=== PATIENT | male | born 1975 | race Caucasian/White ===

== ENCOUNTER 2016-10-18 10:24 | Observation (INO) | payer MEDICARE, OTHER ==
[~2016-10-18] VITALS: Ht 188 cm; Wt 79.6 kg
[2016-10-18] MEDS ORDERED: LEVO88TA3 PO (10:39)
[2016-10-18] MEDS ORDERED: KEPP1TAB2 PO (10:39)
[2016-10-18] MEDS ORDERED: HYDRPOW14 PO (10:39)
[2016-10-18] MEDS ORDERED: FORT10GE TD (10:39)
[2016-10-18] MEDS ORDERED: LISI10TA4 PO (10:39)
[2016-10-18] MEDS ORDERED: PANT40TA2 PO (10:39)
--- NOTE | 2016-10-18 11:52 | REP ---
Clinical: Left chest pain. Technique: PA and lateral. Comparison: 05/24/2016. Findings: Very subtle small areas of left basilar atelectasis suggested. The mediastinum and cardiac silhouette are within normal limits and stable. The remainder of lung palmer are clear and without further consolidation, effusion, or pneumothorax. The patient is status post bilateral axillary node dissection. Skeletal structures are intact. Impression: Findings suggest very subtle left basilar atelectasis. Signed by Ho Nguyen MD 10/18/2016 11:43 A
[2016-10-18] MEDS ORDERED: NS 1,000 ML IV ONE (12:00)
[2016-10-18 12:34] LABS: INR 1.03
[2016-10-18 12:47] LABS: ALBUMIN 3.3 GM/DL (3.2-5.2); ALBUMIN/GLOBULIN RATIO 0.65 (1.00-1.93); ALKALINE PHOSPHATASE 118 U/L (45-117); ALT/SGPT 18 U/L (12-78); ANION GAP 6 MEQ/L (8-16); AST/SGOT 20 U/L (15-37); BILIRUBIN,DIRECT 0.1 MG/DL (0.0-0.2); BILIRUBIN,TOTAL 0.6 MG/DL (0.2-1.0); BLOOD UREA NITROGEN 8 MG/DL (7-18); CARBON DIOXIDE LEVEL 29 MEQ/L (21-32); CHLORIDE LEVEL 101 MEQ/L (98-107); CREATININE FOR GFR 0.79 MG/DL (0.70-1.30); GLOMERULAR FILTRATION RATE > 60.0 (>60); GLUCOSE, FASTING 90 MG/DL (70-105); POTASSIUM SERUM 3.5 MEQ/L (3.5-5.1); SODIUM LEVEL 136 MEQ/L (136-145); TOTAL PROTEIN 8.4 GM/DL (6.4-8.2)
[2016-10-18 12:51] LABS: BASO % 0.2 % (0.0-1.0); EOS # 0.1 K/mm3 (0.0-0.50); EOS % 1.2 % (0.0-3.0); LARGE UNSTAINED CELL # 0.1 K/mm3 (0.0-0.4); LYMPH # 1.1 K/mm3 (1.5-4.5); LYMPH % 11.7 % (24.0-44.0); MEAN CORPUSCULAR HEMOGLOBIN 37.3 pg (27.0-33.0); MEAN CORPUSCULAR HGB CONC 34.1 g/dl (32.0-36.5); MEAN CORPUSCULAR VOLUME 109.4 fl (80.0-96.0); MONO # 0.6 K/mm3 (0.0-0.8); MONO % 6.4 % (0.0-5.0); NEUTROPHILS # 7.4 K/mm3 (1.8-7.7); NEUTROPHILS % 79.4 % (36.0-66.0); PLATELET COUNT, AUTOMATED 302 k/mm3 (150-450); RED CELL DISTRIBUTION WIDTH 14.2 % (11.5-14.5); WHITE BLOOD COUNT 9.4 K/mm3 (4.0-10.0)
[2016-10-18] MEDS ORDERED: ISOVUE-370 76% 100ML VIAL (Q9967) As Ordered ONE (12:56)
[2016-10-18] MEDS ORDERED: PERCOCET 5MG/325MG TAB PO ONE (13:00)
[2016-10-18 13:37] LABS: ADD MORPHOLOGY? YES
--- NOTE | 2016-10-18 13:38 | REP ---
Clinical: Left-sided chest pain with acute deep venous thrombosis. Technique: Axial contrast enhanced images from the thoracic inlet to the upper abdomen using 100 ml Isovue 370 intravenous contrast material with multiplanar re-formations. Findings: Satisfactory enhancement of the pulmonary vasculature is achieved and there is significant acute pulmonary embolus in the left main pulmonary artery extending primarily into multiple left lower lobe pulmonary arteries and to a lesser extent the left upper lobe and lingular pulmonary arteries. Moderate pulmonary embolus also identified in the distal right main pulmonary artery is also appreciated extending into the right upper, middle and lower lobe pulmonary arteries. Minimal lingular and left lower lobe atelectasis. No pleural effusion. No pneumothorax. Tracheobronchial tree is patent. Heart and pericardium are normal. Surrounding musculoskeletal structures are intact. Impression: Extensive bilateral pulmonary emboli as described above. Minimal left basilar and lingular atelectasis. Signed by Ho Nguyen MD 10/18/2016 01:30 P
[2016-10-18] MEDS ORDERED: ENOXAPARIN 80 MG/0.8 ML SYRINGE (J1650) SC ONE (14:00)
[2016-10-18] MEDS ORDERED: HYDR-3291 PO (14:05)
[2016-10-18] MEDS ORDERED: PENT40TASA PO (14:05)
[2016-10-18] MEDS ORDERED: ONDANSETRON 4MG/2ML VIAL (J2405) IV PRN (15:30)
[2016-10-18] MEDS ORDERED: ACETAMINOPHEN TAB 650MG DOSE (2X325MG) PO PRN (15:30)
--- NOTE | 2016-10-18 16:39 | REP ---
Clinical: Right lower extremity swelling with history of prior DVT. Technique: Jovle scale and color Doppler evaluation using linear high frequency transducer. Findings: Ultrasound examination of the right lower extremity deep venous structures from the common femoral vein to the popliteal vein demonstrates complete occlusive thrombus extending into the calf veins. The patient gives a history of prior Kay filter placement. Impression: Occlusive thrombus throughout the right lower extremity from the common femoral vein to the popliteal vein and proximal calf veins. The patient gives a history of prior deep venous thrombosis and Kay filter placement. Signed by Ho Nguyen MD 10/18/2016 11:42 A
--- NOTE | 2016-10-18 16:47 | HPE ---
DATE OF ADMISSION: 10/18/2016 PRIMARY CARE PROVIDER: Makenna Dimas MD ONCOLOGIST: Ana Laura Aguilar MD CODE STATUS: FULL CODE. CHIEF COMPLAINT: Chest discomfort and nonproductive cough. HISTORY OF PRESENT ILLNESS: Mr. Duarte is a pleasant 41-year-old gentleman that normally sees Makenna Dimas, has a previous history of metastatic melanoma with brain metastases 10 to 15 years ago and it has been in remission, status post treatment. He does have a history of recurrent venothromboembolism with recurrent blood clot in the right lower extremity as well as pulmonary embolism in the past. Has an inferior vena cava (IVC) filter that was placed but has not been on any anticoagulation therapy and has been getting along relatively well with his disease course. He did present today with increasing shortness of breath, pleuritic type chest pain with deep inspiration and cough. He denies fever, chills, rigors, nausea or vomiting. Bowel movements have been regular. He denies any hematochezia and melena. No neurologic symptoms are reported as well. He was worked up through the emergency department and found to have multiple bilateral pulmonary emboli and a right thigh deep venous thrombosis (DVT). Hospitalist was consulted and requested to admit to the patient for further evaluation and anticoagulation therapy. PAST MEDICAL HISTORY: 1. Melanoma with brain metastases, status post remission. 2. 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 3. History of seizure disorder. 4. History of hypothyroidism. 5. Hypertension. 6. Gastroesophageal reflux disease (GERD). 7. Prior history of adrenal insufficiency. PAST SURGICAL HISTORY: As indicated, the patient did have an IVC filter placed several years ago. FAMILY HISTORY: Noncontributory. SOCIAL HISTORY: The patient does have a history of smoking approximately a half a pack or a pack a day. We did encourage smoking cessation. He denies any alcohol use. No recent travel. No sick contacts. ALLERGIES: No known drug allergies, but he does have an allergy to BEE VENOM. HOME MEDICATIONS: Include: - hydrocortisone 10 mg twice a day - Keppra 750 mg two tablets twice a day - Synthroid 88 mcg daily - lisinopril 10 mg daily - pantoprazole 40 mg daily - pentoxifylline 400 mg twice a day REVIEW OF SYSTEMS: CONSTITUTIONAL: The patient denies fever, chills, rigors. No change in appetite. No weight loss. HEENT: Denies headache. Denies lightheadedness, dizziness, blurry vision, double vision or tinnitus. No difficulty with speech or swallow. PULMONARY: Nonproductive cough. Pleuritic chest pain with deep inspiration and cough. CARDIOVASCULAR: He denies paroxysmal nocturnal dyspnea (PND), orthopnea. No substernal chest pain. GI: No nausea, vomiting or diarrhea. Bowel movements are regular. He denies any hematochezia or melena. : No dysuria, frequency or hematuria. MUSCULOSKELETAL: No bone loss, joint pain, swelling or erythema. NEUROLOGICAL: No paresthesia or paralysis. He denies loss of consciousness. He does have a prior history of seizure disorder, likely related to his previous metastatic disease with brain metastases related to his melanoma. HEMATOLOGY: Positive history of recurrent venothromboembolism with PE and DVT. ONCOLOGY: Prior history of melanoma for which he follows with Dr. Agiular and has been in remission for 10 to 15 years with no recurrence. LYMPHATICS: No lumps, bumps or swelling of the neck, axilla or groin. No weight loss. No night sweats. ENDOCRINE: Positive for thyroid, negative for diabetes. PSYCHIATRIC: No history of depression or suicidal ideation. PHYSICAL EXAMINATION: Temperature is 97.6, pulse 78, respiratory rate 16, blood pressure 121/80, SpO2 is 96% on room air. HEENT: Head atraumatic, normocephalic. He does have a prior scar just off the midline on the left of the scalp. Otherwise, eyes are pupils equal, round, reactive to light and accommodation. Throat is clear. Neck supple. LUNGS: Clear to auscultation. HEART: Regular rate and rhythm. ABDOMEN: Soft. EXTREMITIES: No edema. No calf tenderness. LABS AND DIAGNOSTICS: White count is 9.4, hemoglobin 15, platelets are 302,000. Sodium 136, potassium 3.5, chloride 101, bicarbonate 29, anion gap 6, BUN 8, creatinine 0.79. Glucose is 90. Total bilirubin is 0.6. Calcium is 9.0. Direct bilirubin 0.1. AST 20, ALT 18, alkaline phosphatase 118. CK 46, CK-MB 1.0, troponin 0.05, albumin is 3.3. Coags: PT is 13.6, INR is 1.03, PTT is 34.4. Lower extremity ultrasound did demonstrate an occlusive thrombus throughout the right lower extremity from the common femoral vein to the popliteal vein and proximal calf veins. Two view chest x-ray. Subtle findings of left basilar atelectasis and CT angio of the chest. Extensive bilateral pulmonary emboli as described with minimal left basilar and lingular atelectasis noted. 12-lead EKG: Sinus rhythm. No acute ST-T wave abnormalities. IMPRESSION: Mr. Duarte is a pleasant 41-year-old male with a previous history of melanoma with metastatic brain disease. Has been in remission for about 10 to 12 years. Does have a history of tobacco use which we advised smoking cessation. He currently has recurrent venothromboembolism involving right side DVT and extensive bilateral PEs. He will need to be admitted for further observation and to start him on anticoagulation therapy. 1. Acute recurrent venothromboembolism. 2. Tobacco use. Advised smoking cessation. 3. History of melanoma with metastatic brain disease. Currently in remission for 10 to 15 years. PLAN: Admit to PCU for observation per Dr. Joseph Carbajal. I did have an opportunity to speak to Dr. Aguilar regarding this patient and since he has been in remission, she did advise to start him on 10A inhibitor which we will then start him on Eliquis. We will observe him overnight. If he is hemodynamically stable, he can be discharged in the morning. I did place a Patient and Family Services (PFS) consult in case he needs prior authorization for the Eliquis.
--- NOTE | 2016-10-18 18:05 | ECGEPIP ---
Stationary ECG Study [facility] - ED Test Date: 2016-10-18 Pat Name: JENNIFER KATHLEEN Department: Room: - Gender: M Supervisor Mending: : 1975 Requested By: PATY Wade PA-C Order Number: [id number] Reading MD: Julius Fraser Measurements Intervals [place] Rate: 84 P: 75 AL: 155 QRS: 29 QRSD: 84 T: 57 QT: 394 QTc: 468 Interpretive Statements SINUS RHYTHM POSSIBLE LEFT ATRIAL ENLARGEMENT NO PRIORS Electronically Signed On 10-18-2016 18:05:21 EDT by Julius Fraser
[2016-10-18 18:19] VITALS: BP 124/77
[2016-10-18] MEDS: PERCOCET 5MG/325MG TAB PO PRN (19:53)
[2016-10-18 20:00] VITALS: BP 134/87
[2016-10-18] MEDS: APIXABAN 5 MG TAB (ELIQUIS) PO SCH (22:03)
[2016-10-18] MEDS: levETIRAcetam 250MG TABLET (KEPPRA) PO SCH (22:03)
[2016-10-18] MEDS: HYDROCORTISONE 10 MG TAB PO SCH (22:03)
[2016-10-18] MEDS: PENTOXIFYLLINE 400 MG TAB PO SCH (22:04)
[2016-10-19] VITALS: BP 108/70
[2016-10-19] MEDS: PERCOCET 5MG/325MG TAB PO PRN ×4 (00:14→13:25)
[2016-10-19 04:48] VITALS: BP 126/85
[2016-10-19 05:29] LABS: ANION GAP 4 MEQ/L (8-16); BLOOD UREA NITROGEN 8 MG/DL (7-18); CALCIUM LEVEL 8.2 MG/DL (8.5-10.1); CARBON DIOXIDE LEVEL 30 MEQ/L (21-32); CHLORIDE LEVEL 103 MEQ/L (98-107); CREATININE FOR GFR 0.82 MG/DL (0.70-1.30); GLOMERULAR FILTRATION RATE > 60.0 (>60); GLUCOSE, FASTING 105 MG/DL (70-105); MEAN CORPUSCULAR HEMOGLOBIN 37.5 pg (27.0-33.0); MEAN CORPUSCULAR HGB CONC 33.8 g/dl (32.0-36.5); MEAN CORPUSCULAR VOLUME 110.9 fl (80.0-96.0); POTASSIUM SERUM 4.3 MEQ/L (3.5-5.1); RED CELL DISTRIBUTION WIDTH 14.8 % (11.5-14.5); SODIUM LEVEL 137 MEQ/L (136-145); WHITE BLOOD COUNT 6.6 K/mm3 (4.0-10.0)
[2016-10-19] MEDS ORDERED: LEVOTHYROXINE 0.088 MG TAB (88 MCG) PO SCH (06:00)
[2016-10-19 08:00] VITALS: BP 118/73
[2016-10-19] MEDS: levETIRAcetam 250MG TABLET (KEPPRA) PO SCH (08:50)
[2016-10-19] MEDS: PENTOXIFYLLINE 400 MG TAB PO SCH (08:51)
[2016-10-19] MEDS: HYDROCORTISONE 10 MG TAB PO SCH (08:51)
[2016-10-19 08:52] VITALS: BP 118/73
[2016-10-19] MEDS: APIXABAN 5 MG TAB (ELIQUIS) PO SCH (08:52)
[2016-10-19] MEDS ORDERED: PANTOPRAZOLE 40MG TAB (PROTONIX) PO SCH (09:00)
[2016-10-19] MEDS ORDERED: LISINOPRIL 10 MG TAB PO SCH (09:00)
[2016-10-19] MEDS ORDERED: ELIQ5TAB PO (11:42)
[2016-10-19 12:00] VITALS: BP 122/85
[2016-10-19 13:25] VITALS: BP 122/85
[2016-10-19] MEDS ORDERED: NICODIS TD (13:34)
--- NOTE | 2016-10-19 14:06 | IPN ---
DATE: 10/19/2016 The patient is feeling well this morning. He is not complaining of any chest discomfort. He does have concerns about starting anticoagulation therapy. He has had no evidence of bleeding. He does not describe any hematochezia or melena. We did discuss smoking cessation at length and he is noncommittal for what he might use for cessation. He says that he has quit previously for months at a time. PHYSICAL EXAMINATION: Temperature 98.1, pulse 75, respiratory rate 20, blood pressure 122/85, 93% on room air. He is awake, appropriately interactive, seems somewhat anxious but pleasant, easily conversant. HEART: Regular rate and rhythm. Sinus on telemetry. No significant arrhythmia on the monitor. LUNGS: Breathing is symmetrical. Somewhat diminished in the bases. No wheezes, rales or rhonchi. ABDOMEN: Soft, doughy, nontender. Hemoglobin is 13, creatinine 0.82. ASSESSMENT: This is a 41-year-old with a history of previous venous thromboembolism in the setting of ongoing smoking. PLAN: 1. Hematology/oncology. The patient has been started on Eliquis after Dr. Garcia's discussion last night with covering microarray specialist/oncologist that it is apparently covered reasonably well with his insurance with minimal copay. The plan will be to discharge him on that. He is not hypoxic. He is not hypotensive. There is no evidence of ongoing bleeding. The patient should followup with both Dr. Aguilar and Dr. Dimas as an outpatient on discharge. MEDICATIONS: Will include the following: - Eliquis 10 mg twice a day for 12 more doses and then 5 mg twice a day thereafter - nicotine patch 21 mg topically daily - Fortesta 30 mg transdermally at bedtime - hydrocortisone 10 mg by mouth twice a day - Keppra 1500 mg by mouth twice a day - Synthroid 88 mcg by mouth daily - Lisinopril 10 mg by mouth daily - Protonix 40 mg by mouth daily - theophylline ER 400 mg by mouth twice a day
[2016-10-19] MEDS ORDERED: OXYC1TAB23 PO (14:21)
[2016-10-26] MEDS ORDERED: APIXABAN 5 MG TAB (ELIQUIS) PO SCH (09:00)
== END 2016-10-19 15:10 | disposition home or self-care (01) ==
LOC: M ED 11:08 → M ED INP 13:45 → M ICU 18:30
PROVIDERS: ADMIT Hospitalist; ATTEND Internal Medicine
DX: I82.511 Chronic embolism and thrombosis of right femoral vein (principal); I26.99 Other pulmonary embolism without acute cor pulmonale; F17.210 Nicotine dependence, cigarettes, uncomplicated; Z85.820 Personal history of malignant melanoma of skin; Z85.841 Personal history of malignant neoplasm of brain; G40.909 Epilepsy, unspecified, not intractable, without status epilepticus; E03.9 Hypothyroidism, unspecified; I10 Essential (primary) hypertension; K21.9 Gastro-esophageal reflux disease without esophagitis; E27.1 Primary adrenocortical insufficiency; Z91.030 Bee allergy status; Z79.899 Other long term (current) drug therapy
CPT/HCPCS: 36415; 71020; 71275; 80048; 80076; 82550; 82553; 84484; 85025; 85027; 85610; 85730; 93005; 93971; 96360; 96361; 96372; 99285; G0378; J1650; Q9967

== ENCOUNTER → 2016-11-02 | Outpatient (CLI) | payer MEDICARE, OTHER ==
[~2016-11-02] MED LIST: ELIQ5TAB PO; FORT10GE TD; HYDR-3291 PO; HYDRPOW14 PO; KEPP1TAB2 PO; LEVO88TA3 PO; LISI10TA4 PO; NICODIS TD; OXYC1TAB23 PO; PANT40TA2 PO; PENT40TASA PO
--- NOTE | 2016-11-02 17:25 | REP ---
PET/CT: History: Metastatic melanoma. Weight loss. New DVT and pulmonary embolism. Left chest pain. The patient is status post interferon therapy, whole brain irradiation, intracranial metastasectomy. Diagnosed in 2001. Comparisons: Comparison CT study of the chest is from October 18, 2016. No comparison PET/CT. TECHNIQUE: 56 minutes following the intravenous injection of a 8.8 mCi dose of F-18 FDG, three-dimensional PET scintigraphy is acquired from the vertex to the toes. Triplanar noncontrast CT scanning is acquired through the same anatomic range for attenuation correction, and image registration with scan parameters optimized to minimize radiation exposure to the patient. PET scintigraphy and CT datasets were fused and displayed on a workstation with multiplanar and projection display capability. PET/CT Findings: Bilateral craniotomies are observed. There are areas of encephalomalacia in the left frontal lobe and right temporal lobe region. No abnormal intracranial hypermetabolic uptake is seen. Head and neck soft tissues are unremarkable. Multiple bilateral axillary surgical clips are again noted. There is no abnormal hilar or mediastinal hypermetabolic uptake. There is an area of pleural-based parenchymal opacity in the lingular segment of the left upper lobe near the left lung base. This shows mildly hypermetabolic FDG accumulation, maximum SUV value 2.5. This has a peripheral wedge shaped morphology and is associated with a fairly large amount of pulmonary embolic thrombus in the ipsilateral pulmonary arteries including the lingular branches. It is felt to be most compatible with pulmonary infarction. This opacity on CT study measures 2.1 cm in diameter. No other abnormal hypermetabolic uptake is seen within the thorax. In the abdomen and pelvis, normal hepatic, splenic, gastrointestinal, and genitourinary FDG accumulation is seen. There is an inferior vena cava filter in place. There is some increased FDG accumulation in the proximal deep veins of the right thigh compatible with recent right proximal thigh DVT. No other abnormal hypermetabolic uptake is seen. Impression: Minimally hypermetabolic uptake in a peripheral wedge or dome shaped lingular opacity, pleural based on the left lateral chest wall in this patient with recent extensive pulmonary emboli. This is felt to be most compatible with a pulmonary infarction. Recommend radiographic follow-up. No other suspicious hypermetabolic uptake is seen. There is some uptake in the proximal deep venous structures in the right thigh compatible with recent DVT. Signed by Seb Marin MD 11/03/2016:09 P
== END ==
LOC: M RAD 14:22
PROVIDERS: ATTEND Internal Medicine Medical Oncology
DX: C79.89 Secondary malignant neoplasm of other specified sites (principal); Z86.711 Personal history of pulmonary embolism
CPT/HCPCS: 78816; A9552

== ENCOUNTER → 2016-12-05 | Outpatient (CLI) | payer MEDICARE, OTHER ==
[2016-12-05 18:46] LABS: BLOOD UREA NITROGEN 8 MG/DL (7-18); CREATININE FOR GFR 1.05 MG/DL (0.70-1.30); GLOMERULAR FILTRATION RATE > 60.0 (>60)
== END ==
LOC: M LRY 13:53
PROVIDERS: ATTEND Nurse Practitioner Adult Health
DX: C71.9 Malignant neoplasm of brain, unspecified (principal)

== ENCOUNTER → 2017-01-09 | Outpatient (REF) | payer MEDICARE, OTHER | LOC: M LAB REF 14:21 | PROVIDERS: ATTEND Internal Medicine Medical Oncology | DX: C43.9 Malignant melanoma of skin, unspecified (principal) ==

== ENCOUNTER → 2017-06-07 | Outpatient (CLI) | payer MEDICARE, OTHER ==
[2017-06-07 16:49] LABS: MEAN CORPUSCULAR HEMOGLOBIN 36.7 pg (27.0-33.0); MEAN CORPUSCULAR HGB CONC 34.4 g/dl (32.0-36.5); MEAN CORPUSCULAR VOLUME 106.7 fl (80.0-96.0); PLATELET COUNT, AUTOMATED 273 10^3/uL (150-450); RED CELL DISTRIBUTION WIDTH 13.3 % (11.5-14.5); WHITE BLOOD COUNT 7.5 10^3/uL (4.0-10.0)
[2017-06-07 17:01] LABS: ANION GAP 5 MEQ/L (8-16); BLOOD UREA NITROGEN 10 MG/DL (7-18); CARBON DIOXIDE LEVEL 31 MEQ/L (21-32); CHLORIDE LEVEL 103 MEQ/L (98-107); CREATININE FOR GFR 0.86 MG/DL (0.70-1.30); FREE T4 1.18 NG/DL (0.76-1.46); GLOMERULAR FILTRATION RATE > 60.0 (>60); GLUCOSE, FASTING 84 MG/DL (70-105); POTASSIUM SERUM 3.9 MEQ/L (3.5-5.1); SODIUM LEVEL 139 MEQ/L (136-145)
== END ==
LOC: M LRY 13:00
PROVIDERS: ATTEND Internal Medicine Endocrinology, Diabetes & Metabolism
DX: E29.1 Testicular hypofunction (principal); E03.9 Hypothyroidism, unspecified; E27.49 Other adrenocortical insufficiency

== ENCOUNTER → 2017-07-11 | Outpatient (REF) | payer MEDICARE, OTHER ==
[2017-07-14 08:21] LABS: PROTEIN C ANTIGEN 108 % (60-150); PROTEIN S ANTIGEN FREE 136 % (57-157); PROTEIN S ANTIGEN TOTAL 89 % (60-150)
== END ==
LOC: M LAB REF 14:59
PROVIDERS: ATTEND Internal Medicine Medical Oncology
DX: C43.9 Malignant melanoma of skin, unspecified (principal)

== ENCOUNTER → 2017-08-11 | Outpatient (CLI) | payer MEDICARE, OTHER ==
[~2017-08-11] MED LIST changes: -ELIQ5TAB PO; -FORT10GE TD; -HYDR-3291 PO; -HYDRPOW14 PO; +ISOVUE-370 76% 100ML VIAL (Q9967) As Ordered; -KEPP1TAB2 PO; -LEVO88TA3 PO; -LISI10TA4 PO; -NICODIS TD; -OXYC1TAB23 PO; -PANT40TA2 PO; -PENT40TASA PO
== END ==
LOC: M RAD 09:05
DX: R91.8 Other nonspecific abnormal finding of lung field (principal); Z87.09 Personal history of other diseases of the respiratory system; Z85.820 Personal history of malignant melanoma of skin
CPT/HCPCS: Q9967

== ENCOUNTER → 2017-12-11 | Outpatient (CLI) | payer MEDICARE, OTHER ==
[2017-12-11 17:25] LABS: BLOOD UREA NITROGEN 8 MG/DL (7-18)
[2017-12-11 17:25] LABS: CREATININE FOR GFR 0.95 MG/DL (0.70-1.30); GLOMERULAR FILTRATION RATE > 60.0 (>60)
== END ==
LOC: M LRY 14:37
DX: C71.9 Malignant neoplasm of brain, unspecified (principal)
CPT/HCPCS: 82565

== ENCOUNTER → 2017-12-22 | Outpatient (CLI) | payer MEDICARE, OTHER ==
[2017-12-22 17:33] LABS: TESTOSTERONE 324 NG/DL (241-827)
[2017-12-22 17:38] LABS: ANION GAP 4 MEQ/L (8-16); BLOOD UREA NITROGEN 9 MG/DL (7-18); CALCIUM LEVEL 9.2 MG/DL (8.5-10.1); CARBON DIOXIDE LEVEL 30 MEQ/L (21-32); CHLORIDE LEVEL 106 MEQ/L (98-107); CREATININE FOR GFR 0.97 MG/DL (0.70-1.30); FREE T4 1.12 NG/DL (0.76-1.46); GLOMERULAR FILTRATION RATE > 60.0 (>60); GLUCOSE, FASTING 87 MG/DL (70-100); POTASSIUM SERUM 3.9 MEQ/L (3.5-5.1); PROSTATIC SPECIFIC AG MONITOR < 0.01 NG/ML (< 4.0); SODIUM LEVEL 140 MEQ/L (136-145)
[2017-12-22 18:24] LABS: HEMOGLOBIN 15.1 g/dl (13.5-17.5)
== END ==
LOC: M LRY 10:27
DX: E29.1 Testicular hypofunction (principal); E03.9 Hypothyroidism, unspecified; E27.49 Other adrenocortical insufficiency
CPT/HCPCS: 84403

== ENCOUNTER → 2018-06-25 | Outpatient (CLI) | payer MEDICARE, OTHER ==
[2018-06-25 16:55] LABS: HEMATOCRIT 42.9 % (42.0-52.0); HEMOGLOBIN 14.7 g/dl (13.5-17.5)
[2018-06-25 17:02] LABS: ANION GAP 5 MEQ/L (8-16); BLOOD UREA NITROGEN 9 MG/DL (7-18); CALCIUM LEVEL 8.7 MG/DL (8.5-10.1); CARBON DIOXIDE LEVEL 31 MEQ/L (21-32); CHLORIDE LEVEL 106 MEQ/L (98-107); CREATININE FOR GFR 0.92 MG/DL (0.70-1.30); FREE T4 1.14 NG/DL (0.76-1.46); GLOMERULAR FILTRATION RATE > 60.0 (>60); GLUCOSE, FASTING 81 MG/DL (70-100); POTASSIUM SERUM 4.1 MEQ/L (3.5-5.1); SODIUM LEVEL 142 MEQ/L (136-145)
[2018-06-25 17:11] LABS: TESTOSTERONE 543 NG/DL (241-827)
== END ==
LOC: M LRY 11:28
DX: E03.9 Hypothyroidism, unspecified (principal); E29.1 Testicular hypofunction; E27.49 Other adrenocortical insufficiency
CPT/HCPCS: 84403

== ENCOUNTER → 2018-12-20 | Outpatient (CLI) | payer MEDICARE, OTHER ==
[~2018-12-20] MED LIST changes: +ATOR1TAB21 PO; +ELIQ5TAB PO; +FORT10GE TD; +HYDR-4513 PO; +HYDRPOW14 PO; -ISOVUE-370 76% 100ML VIAL (Q9967) As Ordered; +KEPP1TAB2 PO; +LEVO88TA3 PO; +LISI10TA4 PO; +NICO21DI34 TD; +OXYC1TAB23 PO; +PANT40TA3 PO; +PENT40TASA PO
[2018-12-20 11:59] LABS: HEMOGLOBIN 14.1 g/dl (13.5-17.5)
[2018-12-20 12:26] LABS: BLOOD UREA NITROGEN 7 MG/DL (7-18); CALCIUM LEVEL 8.7 MG/DL (8.5-10.1); CARBON DIOXIDE LEVEL 29 MEQ/L (21-32); CHLORIDE LEVEL 108 MEQ/L (98-107); CREATININE FOR GFR 0.73 MG/DL (0.70-1.30); FREE T4 1.07 NG/DL (0.76-1.46); GLOMERULAR FILTRATION RATE > 60.0 (>60); GLUCOSE, FASTING 74 MG/DL (70-100); POTASSIUM SERUM 3.9 MEQ/L (3.5-5.1); SODIUM LEVEL 142 MEQ/L (136-145)
[2018-12-20 12:33] LABS: TESTOSTERONE 248 NG/DL (241-827)
== END ==
LOC: M LRY 09:18
PROVIDERS: ATTEND Nurse Practitioner Family
DX: E03.9 Hypothyroidism, unspecified (principal); E29.1 Testicular hypofunction; E27.49 Other adrenocortical insufficiency
CPT/HCPCS: 36415; 80048; 84403; 84439; 85014; 85018; G0103

== ENCOUNTER → 2019-01-21 | Outpatient (CLI) | payer MEDICARE, OTHER ==
[~2019-01-21] MED LIST changes: +PENT400T23 PO; -PENT40TASA PO
== END ==
LOC: M OUTALCOH 09:14
PROVIDERS: ATTEND Psychiatry & Neurology Psychiatry
DX: Z13.39 Encounter for screening examination for other mental health and behavioral disorders (principal); F10.10 Alcohol abuse, uncomplicated; F12.10 Cannabis abuse, uncomplicated

== ENCOUNTER 2019-02-19 16:00 | Outpatient (RCR) | payer MEDICARE, OTHER | END 2019-02-20 | LOC: M OUTALCOH 16:00 | PROVIDERS: ATTEND Psychiatry & Neurology Psychiatry | DX: F10.10 Alcohol abuse, uncomplicated (principal); F12.10 Cannabis abuse, uncomplicated; F17.200 Nicotine dependence, unspecified, uncomplicated ==

== ENCOUNTER 2019-03-19 16:00 | Outpatient (RCR) | payer MEDICARE, OTHER | END 2019-03-23 | LOC: M OUTALCOH 16:00 | PROVIDERS: ATTEND Psychiatry & Neurology Psychiatry | DX: F10.10 Alcohol abuse, uncomplicated (principal); F12.10 Cannabis abuse, uncomplicated; F17.200 Nicotine dependence, unspecified, uncomplicated ==

== ENCOUNTER → 2019-03-22 | Outpatient (CLI) | payer MEDICARE, OTHER ==
[2019-03-22 16:34] LABS: BLOOD UREA NITROGEN 10 MG/DL (7-18); GLOMERULAR FILTRATION RATE > 60.0 (>60)
== END ==
LOC: M LRY 09:58
PROVIDERS: ATTEND Neurological Surgery
DX: C71.9 Malignant neoplasm of brain, unspecified (principal)

== ENCOUNTER 2019-04-17 14:12 | Outpatient (RCR) | payer MEDICARE, OTHER | END 2019-04-22 | LOC: M OUTALCOH 14:12 | PROVIDERS: ATTEND Psychiatry & Neurology Psychiatry | DX: F10.10 Alcohol abuse, uncomplicated (principal); F12.10 Cannabis abuse, uncomplicated; F17.200 Nicotine dependence, unspecified, uncomplicated ==

== ENCOUNTER 2019-04-29 09:38 | Outpatient (RCR) | payer MEDICARE, OTHER | END 2019-05-23 | LOC: M OUTALCOH 09:38 | PROVIDERS: ATTEND Psychiatry & Neurology Psychiatry | DX: F10.10 Alcohol abuse, uncomplicated (principal); F12.10 Cannabis abuse, uncomplicated; F17.200 Nicotine dependence, unspecified, uncomplicated ==

== ENCOUNTER → 2019-06-17 | Outpatient (CLI) | payer MEDICARE, OTHER ==
[2019-06-17 11:32] LABS: HEMATOCRIT 38.5 % (42.0-52.0); HEMOGLOBIN 12.9 g/dl (13.5-17.5)
[2019-06-17 12:19] LABS: BLOOD UREA NITROGEN 9 MG/DL (7-18); CALCIUM LEVEL 9.2 MG/DL (8.5-10.1); CARBON DIOXIDE LEVEL 32 MEQ/L (21-32); CHLORIDE LEVEL 106 MEQ/L (98-107); CREATININE FOR GFR 0.84 MG/DL (0.70-1.30); FREE T4 1.28 NG/DL (0.76-1.46); GLOMERULAR FILTRATION RATE > 60.0 (>60); GLUCOSE, FASTING 78 MG/DL (70-100); POTASSIUM SERUM 4.4 MEQ/L (3.5-5.1); SODIUM LEVEL 140 MEQ/L (136-145); TESTOSTERONE 318 NG/DL (241-827)
== END ==
LOC: M LRY 09:46
PROVIDERS: ATTEND Nurse Practitioner Family
DX: E03.9 Hypothyroidism, unspecified (principal); E29.1 Testicular hypofunction; E27.49 Other adrenocortical insufficiency

== ENCOUNTER → 2019-12-18 | Outpatient (CLI) | payer MEDICARE, OTHER ==
[~2019-12-18] MED LIST changes: +HYDR-4468 PO; -HYDR-4513 PO
[2019-12-18 11:29] LABS: HEMATOCRIT 40.5 % (42.0-52.0); HEMOGLOBIN 13.8 g/dl (13.5-17.5)
[2019-12-18 11:46] LABS: BLOOD UREA NITROGEN 8 MG/DL (7-18); CALCIUM LEVEL 8.8 MG/DL (8.5-10.1); CARBON DIOXIDE LEVEL 29 MEQ/L (21-32); CHLORIDE LEVEL 105 MEQ/L (98-107); GLOMERULAR FILTRATION RATE > 60.0 (>60); GLUCOSE, FASTING 94 MG/DL (70-100); POTASSIUM SERUM 3.9 MEQ/L (3.5-5.1); SODIUM LEVEL 139 MEQ/L (136-145); TESTOSTERONE 561 NG/DL (241-827)
== END ==
LOC: M LRY 09:21
PROVIDERS: ATTEND Nurse Practitioner Family
DX: E03.9 Hypothyroidism, unspecified (principal); E29.1 Testicular hypofunction; E27.49 Other adrenocortical insufficiency
CPT/HCPCS: 36415; 80048; 84403; 84439; 85014; 85018; G0103